=== PATIENT | male | born 1940 | race Caucasian/White ===

== ENCOUNTER → 2017-07-03 | Outpatient (CLI) | payer MEDICARE, OTHER ==
[2017-03-19 12:55] VITALS: BMI 23.0
[~2017-07-03] MED LIST: DOC100 PO; DOCU-416 PO; DOCU100C49 PO; FESO8PT PO; FINA5TAB64 PO; HYDR-385 PO; HYDR-4309 PO; LEVO250T55 PO; MIRA50TA PO; NITR-105 PO; OXYB10TA21 PO; PAN20 PO; PANT40TA65 PO; PER PO; PHEN200T32 PO; SULF-198 PO; TAMS0.4C25 PO
[2017-07-03 12:16] LABS: PLATELET COUNT, AUTOMATED 347 K/uL (150-450)
== END ==
LOC: LAB 11:39
PROVIDERS: ATTEND Internal Medicine Nephrology
DX: Z13.9 Encounter for screening, unspecified (principal); N28.9 Disorder of kidney and ureter, unspecified; N18.3 Chronic kidney disease, stage 3 (moderate); D63.1 Anemia in chronic kidney disease
CPT/HCPCS: 36415; 81001; 82040; 82310; 82374; 82435; 82550; 82565; 82570; 82728; 82947; 83540; 83550; 83970; 84100; 84132; 84156; 84295; 84520; 85025; 87077; 87088; 87186

== ENCOUNTER → 2017-07-08 | Outpatient (CLI) | payer MEDICARE, OTHER ==
[2017-03-19 12:55] VITALS: BMI 23.0
[~2017-07-08] MED LIST changes: -FESO8PT PO; -MIRA50TA PO
--- NOTE | 2017-07-08 15:09 | RADIOLOGY IMAGING REPORT ---
FACILITY: [facility] PATIENT NAME: Warren Tomas : 1940 MR: [id number] V: [id number] EXAM DATE: ORDERING PHYSICIAN: LANETTE GE TECHNOLOGIST: Location: [facility] Patient: Warren Tomas : 1940 Visit/Account:[id number] Date of Sevice: 07/08/2017 KIDNEYS EXAMINATION: Renal ultrasound. History: Acute renal injury, renal insufficiency, prior left nephrectomy COMPARISON STUDIES: May 06, 2017 FINDINGS: Kidneys: Right kidney- 10.7 x 5.8 x 5.8 cm Left kidney- surgically removed cm Uniform and symmetric blood flow in the right kidney by Doppler ultrasound. Hydronephrosis: There is a mild hydronephrosis on the right prebladder emptying although this resolve d following patient voiding. Resistive index on the right is 0.61. Bladder: Prevoid volume 190 mL. Post void residual 3 mL. The right ureteral jet was identified Abdominal aorta and IVC: Aorta and IVC are patent by Doppler ultrasound. IMPRESSION: Post surgical changes from a left nephrectomy There is mild hydronephrosis on the right that resolved following patient voiding. Report Dictated By: Avis Weinberg MD at 07/08/2017 3:02 PM Report E-Signed By: Avis Weinberg MD at 07/08/2017 3:05 PM WSN:[email or web address]
== END ==
LOC: US 02:24
PROVIDERS: ATTEND Internal Medicine Nephrology
DX: N13.30 Unspecified hydronephrosis (principal); Z90.5 Acquired absence of kidney
CPT/HCPCS: 76705

== ENCOUNTER → 2017-07-10 | Outpatient (CLI) | payer MEDICARE, OTHER ==
[2017-03-19 12:55] VITALS: BMI 23.0
== END ==
LOC: LAB 09:13
PROVIDERS: ATTEND Internal Medicine Nephrology
DX: N28.9 Disorder of kidney and ureter, unspecified (principal); N18.9 Chronic kidney disease, unspecified; D63.1 Anemia in chronic kidney disease; N17.9 Acute kidney failure, unspecified
CPT/HCPCS: 36415; 82310; 82374; 82435; 82565; 82947; 84132; 84295; 84520

== ENCOUNTER → 2017-07-16 | Outpatient (CLI) | payer MEDICARE, OTHER ==
[2017-03-19 12:55] VITALS: BMI 23.0
[~2017-07-16] MED LIST changes: +FESO8PT PO; +MIRA50TA PO
== END ==
LOC: LAB 09:25
PROVIDERS: ATTEND Internal Medicine Nephrology
DX: N17.9 Acute kidney failure, unspecified (principal)
CPT/HCPCS: 36415; 82310; 82374; 82435; 82565; 82947; 84132; 84295; 84520

== ENCOUNTER → 2017-07-18 | Outpatient (CLI) | payer MEDICARE, OTHER ==
[2017-03-19 12:55] VITALS: BMI 23.0
== END ==
LOC: LAB 08:19
PROVIDERS: ATTEND Urology
DX: N13.30 Unspecified hydronephrosis (principal); N18.9 Chronic kidney disease, unspecified; R33.8 Other retention of urine
CPT/HCPCS: 81001; 87088

== ENCOUNTER 2017-07-23 00:22 | Day surgery (SDC) | payer MEDICARE, OTHER ==
[2017-03-19 12:55] VITALS: Ht 180.3 cm; Wt 70.3 kg
--- NOTE | 2017-07-22 15:15 | HISTORY AND PHYSICAL ---
DATE OF ADMISSION: July 23, 2017 CHIEF COMPLAINT Chronic renal insufficiency with right solitary kidney with indwelling ureteral stent and incomplete bladder emptying. HISTORY OF PRESENT ILLNESS The patient is a 77-year-old white male who has a solitary right kidney following left nephrectomy for renal cell carcinoma. He was most recently noted to have a kidney stone in his right lower pole. His baseline creatinine was approximately 2 to 2.2 at that time. He subsequently underwent right ureteral stent placement with extracorporeal shock wave lithotripsy on February 02. His ureteral stent was removed on the 03 of March, and on return to the clinic two and a half weeks later, he was found to be in acute urinary retention with residual greater than 600 mL. A Mcintosh catheter was placed in the office; however, at the conclusion of drainage, the catheter became grossly bloody, and he was admitted to the hospital for bladder irrigation. At that time, an ultrasound was performed which showed the patient to have right hydroureteronephrosis down to his bladder. At this time on admission, his creatinine was at 2.9; however, after the Mcintosh catheter placement, his creatinine decreased to 2.2. In mid March, he was taken to the operating room , and a retrograde pyelogram was performed which showed some continued mild hydronephrosis and questionable narrowing of the distal ureter, although this was unclear. A distal ureteroscopy was performed which was unremarkable, and a double-J stent was placed. Since that time, the patient has been started on a clean intermittent catheterization, Myrbetriq, and Toviaz, and hopes to decrease his bladder pressures. However, formal urodynamics have not been performed. The patient recently saw Dr. Gonzalez of Nephrology who recommended that we keep his ureteral stent in place until his GFR returns to his previous baseline. More recently, his creatinine has been 4.[address] Gonzalez ordered a renal ultrasound which was performed on the 08 of July which showed some mild right hydronephrosis which resolved after the patient catheterized. Current urine culture is negative. We plan to perform anesthetic cystoscopy, stent removal, and replacement with possible ureteroscopy. PAST MEDICAL HISTORY 1. Vertigo. 2. Gastroesophageal reflux disease. 3. Erectile dysfunction. 4. BPH with elevated PSA and urinary retention. 5. Kidney stones. 6. Gallstones. 7. Thyroid nodule. 8. Renal insufficiency. PAST SURGICAL HISTORY 1. Vasectomy. 2. Colonoscopy. 3. Hernia repair. 4. Thyroid biopsy. 5. Robotic-assisted left radial nephrectomy 2014. 6. Right extracorporeal shock wave lithotripsy with stent placement February 02, 2017. 7. Retrograde pyelogram with right distal ureteroscopy with double-J replacement March 26, 2017. 8. Ureteroscopy with stent replacement April 23, 2017. CURRENT MEDICATIONS 1. Protonix. 2. Flomax. 3. Proscar. 4. Myrbetriq. 5. Toviaz. ALLERGIES No known drug allergies. SOCIAL HISTORY The patient is and lives in [place]. REVIEW OF SYSTEMS The patient denies chest pain, shortness of breath, extremity edema, abdominal pain, change in weight, fever, chills, or bleeding disorder. PHYSICAL EXAMINATION GENERAL: The patient is well-developed, well-nourished, white male in no acute distress. HEENT: Normocephalic, atraumatic. CHEST: Clear to auscultation bilaterally. CARDIOVASCULAR: Regular rate and rhythm. ABDOMEN: Soft, nontender. No masses are palpated. GENITOURINARY: Deferred to the OR. EXTREMITIES: Without clubbing, cyanosis, or edema. NEUROLOGIC: Nonfocal. IMPRESSION A 77-year-old white male with a solitary kidney with renal insufficiency. He currently has significant postvoid residuals which are requiring clean intermittent catheterization. There is also some question whether he has a distal ureteral narrowing causing his hydronephrosis versus a noncompliant bladder with elevated residuals which could be possibly contributing to his renal insufficiency in his solitary system. PLAN Perform anesthetic cystoscopy with removal and replacement of right internal double-J ureteral stent with possible ureteroscopy and/or ureteral dilation. In followup, I would like to perform a formal urodynamics test to evaluate his detrusor compliance and storage pressures with option of chronic indwelling Mcintosh or increasing his CIC to keep his bladder pressures below 30 to 40 cm of water and then possibly proceed with transurethral resection or vaporization of prostate. ELLIOT
[2017-07-23] VITALS (7 sets, daily range): BP systolic 115–138; BP diastolic 69–94
[~2017-07-23] VITALS: Ht 180.3 cm; Wt 70.3 kg
[2017-07-23] MEDS ORDERED: IOPAMIDOL-200 50 ML VIAL IS ONE (07:12)
[2017-07-23] MEDS ORDERED: LIDOCAINE/SOD BICARB 8.4% SYR ID ONE (08:00)
[2017-07-23] MEDS ORDERED: MIDAZOLAM 2 MG/2 ML VIAL IVP ONE (08:00)
[2017-07-23] MEDS ORDERED: NORMOSOL R SOLN(*) 1000 ML BAG 1,000 ML IV PRN (08:00)
[2017-07-23] MEDS ORDERED: ceFAZolin(*) 1 GM VIAL 1 GM in NS(*) 0.9% 100 ML ADDVANT BAG 100 ML IV ONE (08:00)
--- NOTE | 2017-07-23 08:29 | RADIOLOGY IMAGING REPORT ---
FACILITY: [facility] PATIENT NAME: Warren Tomas : 1940 MR: [id number] V: [id number] EXAM DATE: ORDERING PHYSICIAN: TIARRA GILBERT TECHNOLOGIST: Location: [facility] Patient: Warren Tomas : 1940 Visit/Account:[id number] Date of Sevice: 07/23/2017 XR ABDOMEN 1 VIEW Indication: Stent removal Comparison: None. Findings: There is a right-sided double-J stent appears in good position. There is no evidence of ca lculus projecting over the right renal silhouette. There are postoperative changes with surgical cli ps from prior left nephrectomy. Normal bowel gas pattern is seen. IMPRESSION: 1. Right-sided double-J stent which appears in good position. 2. Postoperative changes left-sided nephrectomy. Report Dictated By: Jose Gonzalez at 07/23/2017 8:24 AM Report E-Signed By: Jose Gonzalez at 07/23/2017 8:26 AM WSN:[email or web address]
[2017-07-23] MEDS ORDERED: KETAMINE HCL 200 MG/20 ML MDV ONE (08:45)
[2017-07-23] MEDS ORDERED: IOTHALAMATE MEGLU 172MG/ML BTL 250 ML IVPB ONE (08:49)
[2017-07-23] MEDS ORDERED: BELLADONNA ALK/OPIUM 60MG SUPP PR ONE (08:50)
[2017-07-23] MEDS ORDERED: NS 0.9% 3000 ML IRRIGATION BAG IR ONE (09:00)
--- NOTE | 2017-07-23 14:30 | RADIOLOGY IMAGING REPORT ---
[place] [facility] [place] NAME: Warren Tomas : 1940 MR: [id number] V: [id number] EXAM DATE: ORDERING PHYSICIAN: TIARRA GILBERT TECHNOLOGIST: Location: [facility] [place] Patient: Warren Tomas : 1940 Visit/Account:[id number] Date of Sevice: 07/23/2017 RETROGRADE PYELOGRAM Indication: HEMATURIA Comparison: None. Findings: Images from a retrograde ureterogram are obtained. Final image demonstrates a right-sided double-J stent. IMPRESSION: Images from a right-sided retrograde ureterogram. Radiation dose: AK 20.23 mGy Report Dictated By: Jose Gonzaelz at 07/23/2017 2:25 PM Report E-Signed By: Jose Gonzalez at 07/23/2017 2:26 PM WSN:[email or web address]
--- NOTE | 2017-07-23 20:11 | OPERATIVE REPORT 1 ---
EVENT DATE: July 23, 2017 SURGEON: Pal Dasilva MD ANESTHESIOLOGIST: Jasen Wilson MD ANESTHESIA: General anesthetic. PREOPERATIVE DIAGNOSIS 1. Solitary right kidney. 2. Indwelling right ureteral stent. 3. Incomplete bladder emptying. 4. Chronic renal insufficiency. POSTOPERATIVE DIAGNOSES 1. Solitary right kidney. 2. Indwelling right ureteral stent. 3. Incomplete bladder emptying. 4. Chronic renal insufficiency. PROCEDURES PERFORMED 1. Cystoscopy. 2. Right stent removal. 3. Static cystogram. 4. Right retrograde pyelogram. 5. Right double-J ureteral stent replacement. ESTIMATED BLOOD LOSS Minimal. INTRAVENOUS FLUIDS Crystalloid. DRAINS 1. A 7-Cymraes x 24 cm Percuflex Plus stent on right. 2. An 18-Cymraes Mcintosh catheter. PATHOLOGY None. COMPLICATIONS None. FINDINGS 1. Trilobar hypertrophy of prostate with significant median lobe extension. 2. Cystogram revealed left vesicoureteral reflux of approximately 350 mL volume , capacity of approximately 400 mL. No right reflux identified. 3. Right retrograde pyelogram with no obvious filling defects along the course of the ureter. Prompt ureteral drainage. CONDITION The patient was taken to the recovery room awake and in stable condition. STATEMENT OF MEDICAL NECESSITY The patient is a 77-year-old white male with a history of a solitary kidney, status post left nephrectomy two years ago for renal cell carcinoma, who in January was noted to be in acute urinary retention with hydronephrosis of his right system. At that time, a stent placed, and he was started on CIC. His creatinine has continued to slowly increase from his baseline of approximately 2.2, now to approximately 4.2. The patient is currently on Flomax and Proscar in addition to being on Myrbetriq and Toviaz while he is catheterizing in an attempt to increase his bladder capacity with decreasing intravesical pressures. The patient currently states he voids approximately one-third of his volume and gets out two-thirds with CIC, which he reports doing approximately four to five times a day. He most recently had a renal ultrasound two weeks ago which did show some mild hydronephrosis with the stent in place. This hydronephrosis was noted at a bladder volume of approximately 200 mL. After the patient catheterized, the hydronephrosis, which was mild, resolved. His current stent has been in place since April. He is now being brought to the operating room for planned anesthetic cystoscopy with stent exchange. DESCRIPTION OF PROCEDURE PERFORMED The patient was brought to the operating room. After general anesthetic was obtained, he was prepped and draped in the usual sterile manner. Antibiotic double solution was instilled into the patient's urethra. This was followed by anesthetic cystoscopy with the 21-Cymraes sheath and both 30- and 70-degree lenses. His bladder neck was mildly elevated with increasing lateral lobes. His median lobe was significantly enlarged. The stent was seen emanating from the right ureteral orifice. There was no evidence of encrustation; however, there was a mild bile film on the stent. The remaining bladder appeared normal. At this point, the distal end of the stent was grasped and gently removed intact. The scope was removed. An 18-Cymraes Mcintosh catheter was placed , and a static cystogram was performed. A total of 400 mL were instilled. He was noted to have left reflux into the ureteral stump at approximately 350 mL. There was no right distal ureteral reflux noted after 400 mL. Approximately 400 mL gravity instillation in the bladder significantly slowed to a drip at a height of approximately 30 cm above the bladder. On my intraoperative interpretation, the cystogram appeared to have left vesicoureteral reflux and a mildly trabeculated bladder wall. No right reflux, and no evidence of bladder extravasation with a total volume approximately 400 mL. Drain films appeared normal. He had prompt drainage of the left ureter. At this point, the Mcintosh catheter was removed and anesthetic cystoscopy again performed. This time, an 8 -Cymraes cone-tip catheter was used to perform a right retrograde pyelogram using 8 mL of contrast material. There were no obvious filling defects or significant areas of obstruction along the course of the ureter. There was slight blunting of the calyceal fornices. However, the pelvis and calyces themselves were not significantly dilated. By my intraoperative interpretation , he had good prompt drainage of the ureter and with moderate drainage of the upper tract. On visualization of the ureteral orifice, contrast material could be seen effluxing at a prompt rate from the right ureteral orifice. The 8- Cymraes access catheter could be advanced up the ureter to the level of the vessels without any resistance. At this point, the cone-tip catheter was removed. A 6-Cymraes access catheter was then used to cannulate the right orifice. A 0.035 wire was placed. The access catheter was removed, and this wire was used to place a 7-Cymraes x 24 cm Percuflex Plus stent. The wire was removed. He was noted to have good coiling in the renal pelvis by fluoroscopy and good coiling in the bladder by direct vision. The scope was removed. An 18 -Cymraes Mcintosh catheter was placed with 12 mL in the balloon. A B and O suppository was given per rectum at the conclusion of the case. He was awakened in the operating room and taken to the recovery area in stable condition. PLAN We will allow the patient to be discharged home today. We are going to continue his Mcintosh catheter in place for the next week. We will see him in the office on the . At that time, we will recheck labs and a creatinine to evaluate his renal function with his system on maximum drainage. If his creatinine has improved, we need to likely formally evaluate his bladder with urodynamics to assess a safe volume and pressure relationship and likely then proceed with transurethral resection and/or vaporization of prostate in an attempt to get him to void spontaneously at lower pressures and then evaluate his system. We may consider removing his ureteral stent and keeping his Mcintosh catheter in place to evaluate for any residual ureteral distal obstruction. ELLIOT
== END 2017-07-23 10:35 | disposition home or self-care (01) ==
LOC: OR 00:22
PROVIDERS: ATTEND Urology
DX: R33.9 Retention of urine, unspecified (principal); N18.9 Chronic kidney disease, unspecified
CPT/HCPCS: 36415; 52005; 74018; 74420; 82565; 84132; 84153; A4338; A9270; C1758; C1769; C2617; J0690; J1100; J2001; J2405; J2704; J3010; J3490; J7050; Q9958; Q9966

== ENCOUNTER → 2017-07-29 | Outpatient (CLI) | payer MEDICARE, OTHER ==
[2017-03-19 12:55] VITALS: BMI 23.0
== END ==
LOC: LAB 07:57
PROVIDERS: ATTEND Urology
DX: N18.9 Chronic kidney disease, unspecified (principal); N13.30 Unspecified hydronephrosis; R33.8 Other retention of urine
CPT/HCPCS: 36415; 82040; 84100

== ENCOUNTER → 2017-07-29 | Outpatient (CLI) | payer MEDICARE, OTHER ==
[2017-03-19 12:55] VITALS: BMI 23.0
[2017-07-29 08:24] LABS: PLATELET COUNT, AUTOMATED 157 K/uL (150-450)
== END ==
LOC: LAB 08:02
PROVIDERS: ATTEND Internal Medicine Nephrology
DX: N28.9 Disorder of kidney and ureter, unspecified (principal); N17.9 Acute kidney failure, unspecified; D30.02 Benign neoplasm of left kidney; D49.519 Neoplasm of unspecified behavior of unspecified kidney
CPT/HCPCS: 82040; 82247; 82310; 82374; 82435; 82565; 82947; 84075; 84132; 84155; 84295; 84450; 84460; 84520; 85025

== ENCOUNTER → 2017-08-14 | Outpatient (CLI) | payer MEDICARE, OTHER ==
[2017-03-19 12:55] VITALS: BMI 23.0
== END ==
LOC: LAB 08:02
PROVIDERS: ATTEND Urology
DX: N18.9 Chronic kidney disease, unspecified (principal)
CPT/HCPCS: 36415; 82040; 82247; 82310; 82374; 82435; 82565; 82947; 84075; 84132; 84155; 84295; 84450; 84460; 84520

== ENCOUNTER → 2017-08-25 | Outpatient (CLI) | payer MEDICARE, OTHER ==
[2017-03-19 12:55] VITALS: BMI 23.0
== END ==
LOC: LAB 08:04
PROVIDERS: ATTEND Urology
DX: N18.9 Chronic kidney disease, unspecified (principal); R33.9 Retention of urine, unspecified; N13.30 Unspecified hydronephrosis; Z85.528 Personal history of other malignant neoplasm of kidney
CPT/HCPCS: 36415; 82040; 82247; 82310; 82374; 82435; 82565; 82947; 84075; 84132; 84155; 84295; 84450; 84460; 84520

== ENCOUNTER → 2017-08-27 | Outpatient (CLI) | payer MEDICARE, OTHER ==
[2017-03-19 12:55] VITALS: BMI 23.0
--- NOTE | 2017-08-27 09:16 | RADIOLOGY IMAGING REPORT ---
[facility] PATIENT NAME: Warren Tomas : 1940 MR: [id number] V: [id number] EXAM DATE: ORDERING PHYSICIAN: TIARRA GILBERT TECHNOLOGIST: Location: [facility] Patient: Warren Tomas : 1940 Visit/Account:[id number] Date of Sevice: 08/27/2017 Renal ultrasound INDICATION: Urinary retention COMPARISON: July 08, 2017 FINDINGS: The right kidney measures 8.8 x 4.9 x 4.8 cm. The left kidney is surgically absent. Renal echogenic ity is normal. No hydronephrosis or renal mass. The right renal cortex appears less thick when comp ared to prior exam. The visible aorta and IVC are normal. A Mcintosh catheter is present within the decompressed bladder. Heterogeneous partially echogenic/calci fied prostate gland is noted and is not well characterized by ultrasound. IMPRESSION: 1. Surgically absent left kidney. 2. No hydronephrosis. 3. The right renal cortex appears less thick when compared to prior. 4. Otherwise unremarkable renal ultrasound. Report Dictated By: Arthur Duke MD at 08/27/2017 8:25 AM Report E-Signed By: Arthur Duke MD at 08/27/2017 9:11 AM WSN:[email or web address]
== END ==
LOC: US 02:43
PROVIDERS: ATTEND Urology
DX: Z90.5 Acquired absence of kidney (principal); R33.8 Other retention of urine; N18.9 Chronic kidney disease, unspecified; Z85.528 Personal history of other malignant neoplasm of kidney
CPT/HCPCS: 36415; 76705; 82565

== ENCOUNTER → 2017-08-31 | Outpatient (CLI) | payer MEDICARE, OTHER ==
[2017-03-19 12:55] VITALS: BMI 23.0
--- NOTE | 2017-08-31 10:03 | RADIOLOGY IMAGING REPORT ---
[place] [facility]: [place] Tomas : 1940 MR: [id number] V: [id number] EXAM DATE: ORDERING PHYSICIAN: TIARRA GILBERT TECHNOLOGIST: [place] [facility] [place] : 1940 Visit/Account:[id number] Date of Sevice: 08/31/2017 Renal ultrasound. HISTORY: Right hydronephrosis, chronic kidney disease, history of kidney cancer. COMPARISON: 08/27/2017. Right renal length: 8.7 cm. Right renal cortical thickness: Borderline thinned, lobulated. Right hydronephrosis: No. Right perinephric fluid collections: No. The left kidney is absent. The urinary bladder is collapsed around a Mcintosh catheter balloon. Right ureteral jet: Not visualized. Left ureteral jet: Not visualized. The ureters are obscured. The abdominal aorta and inferior vena cava are partially obscured. IMPRESSION: Borderline right renal atrophy. No right hydronephrosis. Absent left kidney. Report Dictated By: Honorio Butt MD at 08/31/2017 9:54 AM Report E-Signed By: Honorio Butt MD at 08/31/2017 9:59 AM WSN:[email or web address]
== END ==
LOC: US 04:13
PROVIDERS: ATTEND Urology
DX: Z90.5 Acquired absence of kidney (principal); N18.9 Chronic kidney disease, unspecified; Z85.528 Personal history of other malignant neoplasm of kidney
CPT/HCPCS: 36415; 76705; 82040; 82247; 82310; 82374; 82435; 82565; 82947; 84075; 84132; 84155; 84295; 84450; 84460; 84520

== ENCOUNTER → 2017-09-10 | Outpatient (CLI) | payer MEDICARE, OTHER ==
[2017-03-19 12:55] VITALS: BMI 23.0
--- NOTE | 2017-09-10 09:46 | RADIOLOGY IMAGING REPORT ---
[facility] PATIENT NAME: Warren Tomas : 1940 MR: [id number] V: [id number] EXAM DATE: ORDERING PHYSICIAN: TIARRA GILBERT TECHNOLOGIST: Location: [facility] [place] Patient: Warren Tomas : 1940 Visit/Account:[id number] Date of Sevice: 09/10/2017 KIDNEYS EXAMINATION: Renal ultrasound. History: History of hydronephrosis, right stent removal, solitary right kidney COMPARISON STUDIES: August 31, 2017 FINDINGS: Kidneys: Right kidney- 9.1 x 4.6 x 5.1 cm Left kidney- removed Uniform and symmetric blood flow in the right kidney by Doppler ultrasound. Hydronephrosis: none Resistive index on the right 0.6. Suggestion of mild cortical thinning of the upper pole the right k idney Bladder: The bladder is decompressed with a Mcintosh catheter therefore not well evaluated Incidentally noted is cholelithiasis Abdominal aorta and IVC: Obscured by bowel gas IMPRESSION: Suggestion of mild cortical thinning of the upper pole of the solitary right kidney with no evidence of hydronephrosis Bladder is decompressed with a Mcintosh catheter Incidental note of cholelithiasis Report Dictated By: Avis Weinberg MD at 09/10/2017 9:37 AM Report E-Signed By: Avis Weinberg MD at 09/10/2017 9:41 AM WSN:[email or web address]
== END ==
LOC: US 00:46
PROVIDERS: ATTEND Urology
DX: N18.9 Chronic kidney disease, unspecified (principal); N13.30 Unspecified hydronephrosis; Z85.528 Personal history of other malignant neoplasm of kidney
CPT/HCPCS: 36415; 76705; 82040; 82247; 82310; 82374; 82435; 82565; 82947; 84075; 84132; 84155; 84295; 84450; 84460; 84520

== ENCOUNTER → 2017-09-23 | Outpatient (CLI) | payer MEDICARE, OTHER ==
[2017-03-19 12:55] VITALS: BMI 23.0
== END ==
LOC: LAB 09:11
PROVIDERS: ATTEND Internal Medicine Nephrology
DX: N28.9 Disorder of kidney and ureter, unspecified (principal); N17.9 Acute kidney failure, unspecified; D30.02 Benign neoplasm of left kidney; D49.519 Neoplasm of unspecified behavior of unspecified kidney
CPT/HCPCS: 36415; 82040; 82310; 82374; 82435; 82565; 82947; 84100; 84132; 84295; 84520

== ENCOUNTER → 2017-09-30 | Outpatient (CLI) | payer MEDICARE, OTHER ==
[2017-03-19 12:55] VITALS: BMI 23.0
== END ==
LOC: LAB 08:33
PROVIDERS: ATTEND Urology
DX: R33.9 Retention of urine, unspecified (principal); N13.30 Unspecified hydronephrosis; N18.9 Chronic kidney disease, unspecified; Z90.5 Acquired absence of kidney
CPT/HCPCS: 36415; 82040; 82247; 82310; 82374; 82435; 82565; 82947; 84075; 84132; 84155; 84295; 84450; 84460; 84520

== ENCOUNTER → 2017-11-03 | Outpatient (REF) | payer MEDICARE, OTHER ==
[2017-03-19 12:55] VITALS: BMI 23.0
== END ==
LOC: ZZSENDIN 19:12
PROVIDERS: ATTEND Urology
DX: N39.0 Urinary tract infection, site not specified (principal); B96.89 Other specified bacterial agents as the cause of diseases classified elsewhere
CPT/HCPCS: 87088

== ENCOUNTER → 2017-11-03 | Outpatient (CLI) | payer MEDICARE, OTHER ==
[2017-03-19 12:55] VITALS: BMI 23.0
--- NOTE | 2017-11-03 12:04 | RADIOLOGY IMAGING REPORT ---
[place] [facility] [place] NAME: Warren Tomas : 1940 MR: [id number] V: [id number] EXAM DATE: ORDERING PHYSICIAN: TIARRA GILBERT TECHNOLOGIST: Location: [facility] [place] Patient: Warren Tomas : 1940 Visit/Account:[id number] Date of Sevice: 11/03/2017 KIDNEYS EXAMINATION: Renal ultrasound. History: History of hydronephrosis right kidney, history of left nephrectomy for renal cancer COMPARISON STUDIES: September 10, 2017 FINDINGS: Kidneys: Right kidney- 9.4 x 4.4 x 4.8 cm Left kidney- surgically removed cm Uniform and symmetric blood flow in the right kidney by Doppler ultrasound. Hydronephrosis: none There is a slight lobular contour to the right kidney Bladder: The bladder is decompressed by Mcintosh catheter Abdominal aorta and IVC: Aorta and IVC are patent by Doppler ultrasound. IMPRESSION: Slight lobular contour to the right kidney although no evidence of hydronephrosis Postsurgical changes from a left nephrectomy Report Dictated By: Avis Weinberg MD at 11/03/2017 11:02 AM Report E-Signed By: Avis Weinberg MD at 11/03/2017 12:00 PM WSN:[email or web address]
== END ==
LOC: US 02:03
PROVIDERS: ATTEND Urology
DX: Z90.5 Acquired absence of kidney (principal); N18.9 Chronic kidney disease, unspecified; R33.8 Other retention of urine
CPT/HCPCS: 36415; 76705; 82565

== ENCOUNTER → 2017-12-04 | Outpatient (CLI) | payer MEDICARE, OTHER ==
[2017-03-19 12:55] VITALS: BMI 23.0
== END ==
LOC: LAB 08:04
PROVIDERS: ATTEND Urology
DX: N18.9 Chronic kidney disease, unspecified (principal); R33.8 Other retention of urine
CPT/HCPCS: 36415; 82040; 82247; 82310; 82374; 82435; 82565; 82947; 84075; 84132; 84155; 84295; 84450; 84460; 84520

== ENCOUNTER → 2017-12-23 | Outpatient (CLI) | payer MEDICARE, OTHER ==
[2017-03-19 12:55] VITALS: BMI 23.0
[2017-12-23 10:12] LABS: PLATELET COUNT, AUTOMATED 166 K/uL (150-450)
== END ==
LOC: LAB 09:42
PROVIDERS: ATTEND Internal Medicine Nephrology
DX: N17.9 Acute kidney failure, unspecified (principal); N13.9 Obstructive and reflux uropathy, unspecified; N18.4 Chronic kidney disease, stage 4 (severe); D63.1 Anemia in chronic kidney disease; Z90.5 Acquired absence of kidney
CPT/HCPCS: 36415; 81001; 82040; 82310; 82374; 82435; 82565; 82570; 82947; 84100; 84132; 84156; 84295; 84520; 85025

== ENCOUNTER → 2018-01-18 | Outpatient (CLI) | payer MEDICARE, OTHER ==
[2017-03-19 12:55] VITALS: BMI 23.0
[~2018-01-18] MED LIST changes: +FERR325T24 PO
[2018-01-18 16:14] LABS: PLATELET COUNT, AUTOMATED 174 K/uL (150-450)
== END ==
LOC: LAB 15:53
PROVIDERS: ATTEND Urology
DX: Z01.812 Encounter for preprocedural laboratory examination (principal); Z12.5 Encounter for screening for malignant neoplasm of prostate; N18.9 Chronic kidney disease, unspecified; R33.8 Other retention of urine; C68.8 Malignant neoplasm of overlapping sites of urinary organs
CPT/HCPCS: 36415; 81001; 85025; 87088; G0103; 82040; 82247; 82310; 82374; 82435; 82565; 82947; 84075; 84132; 84153; 84155; 84295; 84450; 84460; 84520

== ENCOUNTER 2018-01-21 00:03 | Day surgery (SDC) | payer MEDICARE, OTHER ==
[2017-03-19 12:55] VITALS: Ht 177.8 cm; Wt 73.0 kg
--- NOTE | 2018-01-20 17:07 | HISTORY AND PHYSICAL ---
DATE OF ADMISSION: January 21, 2018 CHIEF COMPLAINT Small-capacity, high-pressure bladder for suprapubic tube placement. HISTORY OF PRESENT ILLNESS Mr. Tomas is a 77-year-old white male who is status post left nephrectomy for a localized renal cell carcinoma, who is being currently followed in the Urology Clinic for incomplete bladder emptying associated with a high-pressure, small- volume bladder with chronic renal insufficiency with a gradient of appropriate 3.5. He is followed by Dr. Gonzalez of the Nephrology Clinic for his underlying chronic renal disease. The patient has had a Mcintosh catheter in place for several months in an attempt to maximize his upper tract drainage and preserve his renal function. He recently has seen Dr. Rebel Waters at the [facility] in [place] concerning his condition with the small -capacity, high-pressure bladder. His options were given as a continued Mcintosh catheter versus a suprapubic catheter versus augmentation cystoplasty. The patient currently is caring for his with dementia and is unable to proceed directly with augmentation. Therefore, we will plan to bridge him with a suprapubic tube placement. If he does well with this with no hematuria with lifting or physical activity, and his renal function remains stable, then this may be his definitive treatment of choice. PAST MEDICAL HISTORY 1. Vertigo. 2. Gastroesophageal reflux disease. 3. Erectile dysfunction. 4. BPH with elevated PSA. 5. Urinary retention. 6. Kidney stones. 7. Gallstones. 8. Thyroid nodule. 9. Renal insufficiency. PAST SURGICAL HISTORY 1. Vasectomy. 2. Colonoscopy. 3. Hernia repair. 4. Thyroid biopsy. 5. Robotic-assisted left radical nephrectomy 2014. 6. Right extracorporeal shock wave lithotripsy with stent placement March 2017. 7. Retrograde pyelogram with right distal ureteroscopy and double-J stent replacement March 2017. 8. Ureteroscopy with stent placement April 2017. 9. Stent removal with cystogram and right retrograde pyelogram and double-J stent replacement July 2017. CURRENT MEDICATIONS 1. Toviaz. 2. Myrbetriq. 3. Protonix. 4. Flomax. ALLERGIES No known drug allergies. SOCIAL HISTORY Patient is and lives outside of [place], [place], [place]. FAMILY HISTORY Noncontributory. REVIEW OF SYSTEMS Patient denies chest pain, shortness of breath, nausea, vomiting, fever, chills , bleeding disorder, or change in bowel habits. PHYSICAL EXAMINATION GENERAL: Patient is a well-developed, well-nourished, white male in no acute distress. HEENT: Normocephalic, atraumatic. CHEST: Clear to auscultation bilaterally. CARDIOVASCULAR: Regular rate and rhythm. ABDOMEN: Soft, nontender. No masses are palpated. GENITOURINARY: Deferred to the OR. EXTREMITIES: Without clubbing, cyanosis, or edema. NEUROLOGIC: Nonfocal. LABORATORY DATA He has had a recent PSA of 3.6 which is down from his pre-Proscar treatment value of approximately 7.3 to 9.4. IMPRESSION A 77-year-old white male with a high-pressure, small-volume bladder with obstructive uropathy and chronic renal insufficiency. PLAN Will perform anesthetic cystoscopy with suprapubic tube placement. [facility]
[~2018-01-21] VITALS: Ht 177.8 cm; Wt 73.0 kg
[2018-01-21] MEDS ORDERED: LIDOCAINE/SOD BICARB 8.4% SYR ID ONE (09:55)
[2018-01-21] MEDS ORDERED: NORMOSOL R SOLN(*) 1000 ML BAG 1,000 ML IV PRN (09:55)
[2018-01-21] MEDS ORDERED: ceFAZolin(*) 1 GM VIAL 1 GM, GENTAMICIN(*) 80 MG/2 ML VIAL 60 MG in NS 0.9% IRRIGATION ... IR ONE (09:55)
[2018-01-21] MEDS ORDERED: MIDAZOLAM 2 MG/2 ML VIAL IVP PRN (09:55)
[2018-01-21] MEDS ORDERED: ceFAZolin(*) 1 GM VIAL 1 GM in NS(*) 0.9% 100 ML ADDVANT BAG 100 ML IVPB ONE (09:55)
[2018-01-21] MEDS ORDERED: fentaNYL CITR 100 MCG/2 ML AMP ONE (10:26)
[2018-01-21] MEDS ORDERED: ONDANSETRON 4 MG/2 ML VIAL ONE (10:27)
[2018-01-21] MEDS ORDERED: PROPOFOL EMUL(*) 10MG/ML 20 ML 20 ML ONE (10:27)
[2018-01-21] MEDS ORDERED: DEXAMETHASONE SOD 4 MG/ML VIAL ONE (10:27)
[2018-01-21] MEDS ORDERED: LIDOCAINE MPF 1% 5 ML VIAL ONE (10:27)
[2018-01-21 11:12] VITALS: BP 145/87
--- NOTE | 2018-01-21 11:14 | EKG ---
FACILITY: PATIENT NAME: JORDAN TAVAREZ : [id number] MR: [id number] V: [id number] EXAM DATE: ORDERING PHYSICIAN: TRINA PATTEN TECHNOLOGIST: NORRIS Test Reason : PRE OP Blood Pressure : / mmHG Vent. Rate : 074 BPM Atrial Rate : 074 BPM P-R Int : 174 ms QRS Dur : 088 ms QT Int : 364 ms P-R-T Axes : 074 072 076 degrees QTc Int : 404 ms Sinus rhythm No acute appearing findings No previous ECGs available Confirmed by TEODORO WILLIAM ([id number]) on 01/21/2018 12:24:16 PM Referred By: VLADIMIR Confirmed By:TEODORO WILLIAM
[2018-01-21] MEDS ORDERED: BELLADONNA ALK/OPIUM 60MG SUPP PR ONE (11:43)
[2018-01-21] MEDS ORDERED: LEVOFLOXACIN/D5W 250 MG/50 ML 50 ML IVPB ONE (11:55)
[2018-01-21] MEDS ORDERED: NEOMYCIN/POLYMYX/BACITR 30 GM TP ONE (12:04)
[2018-01-21] MEDS ORDERED: DOCU-416 PO (12:42)
[2018-01-21] MEDS ORDERED: HYDR-4309 PO (12:43)
[2018-01-21 13:15] VITALS: BP 126/82
[2018-01-21] MEDS ORDERED: APAP/HYDROCODONE 325/5 TAB ONE (13:40)
--- NOTE | 2018-01-21 14:38 | OPERATIVE REPORT 1 ---
EVENT DATE: January 21, 2018 SURGEON: Pal Dasilva MD ANESTHESIOLOGIST: Jhonny Dye MD ANESTHESIA: General anesthetic. PREOPERATIVE DIAGNOSES 1. Small-capacity, high-pressure neurogenic bladder with outlet obstruction. 2. Chronic renal insufficiency. POSTOPERATIVE DIAGNOSES 1. Small-capacity, high-pressure neurogenic bladder with outlet obstruction. 2. Chronic renal insufficiency. PROCEDURES PERFORMED 1. Anesthetic cystoscopy with bladder irrigation using double antibiotic solution. 2. Suprapubic tube placement. ESTIMATED BLOOD LOSS 5 mL INTRAVENOUS FLUIDS Crystalloid. DRAINS 20-[place] Citizen, 30 mL balloon Mcintosh catheter as SP tube. COMPLICATIONS None. CONDITIONS Patient taken to recovery room awake and in stable condition. STATEMENT OF MEDICAL NECESSITY Patient is a 77-year-old male who is status post left radical nephrectomy for renal cell carcinoma who is more recently noted to have both urinary retention and a high-pressure, small-capacity bladder requiring chronic Mcintosh catheter placement. He has consulted with Dr. Rebel Waters at the [facility] in [place] concerning possible bladder augmentation in the future. He is currently unable to take a sufficient amount of time off to recover from this procedure and currently desires suprapubic tube placement while considering his options. DESCRIPTION OF OPERATION PERFORMED Patient was brought to the operating room. His Mcintosh catheter was removed, and he was placed in the dorsal lithotomy position and prepped and draped in the usual sterile manner. At first, his urethra was irrigated with antibiotic solution with a bulb syringe. This was followed by anesthetic cystoscopy with the 21-[place] Citizen rigid scope and 30-degree lens. He had a normal-appearing pendulous, bulbar, and membranous urethra. In his prostatic urethra, he was noted to have significant median lobe extinction. Upon entering his bladder, there appeared to be some bullous changes on the posterior wall and dome consistent with Mcintosh catheter irritation. No other abnormalities were noted. At this point, bladder irrigation with double antibiotic solution was done through the scope sheath. The patient was then placed in the Trendelenburg position and his bladder filled to capacity with gravity drainage at approximately 300 mL. Following this, the cystoscope was removed, and the Lowsley retractor was placed in the urethra and guided into the bladder. It was then tented up on the anterior dome surface of the bladder. A small incision was made in the midline approximately two fingerbreadths above the pubic symphysis and taken down to the Lowsley retractor which punched through this opening and was advanced out. At this point, the forceps of the Lowsley were opened, and this was used to grasp the 24-inch Mcintosh catheter with a 30 mL balloon. This was then advanced back into the bladder where the balloon was inflated with 10 mL. It was released from the Lowsley and the Lowsley removed. Cystoscopy was repeated. The catheter appeared to be in a good location on the dome of the bladder, and 20 mL were inflated on the catheter, and the balloon was pulled up on the dome of the bladder. The SP site was irrigated with antibiotic solution. A 4-0 chromic was used to reapproximate the skin edge on the lateral aspect of the incision, and a #1 chromic stitch was then used to secure the SP tube to the skin. A sterile dressing was applied. The catheter was placed to a Mcintosh drainage bag. He was given a B and O suppository and taken down from dorsal lithotomy position. He was then awakened in the operating room and taken to the recovery area in stable condition. PLAN The plan will be allow the patient to be discharged home today with his Mcintosh catheter to gravity drainage. He is to be given both urinary leg and bed bags and instructions to use. He is to continue his Bactrim single strength twice a day for the next three days. He is also give a prescription for Willard and Colace as needed. Will plan to see Mr. Tomas in the clinic in three to four weeks for his first suprapubic catheter exchange. ELLIOT
== END 2018-01-21 13:15 | disposition home or self-care (01) ==
LOC: OR 00:03
PROVIDERS: ATTEND Urology
DX: N31.9 Neuromuscular dysfunction of bladder, unspecified (principal); N18.9 Chronic kidney disease, unspecified; K21.9 Gastro-esophageal reflux disease without esophagitis; N40.0 Benign prostatic hyperplasia without lower urinary tract symptoms
CPT/HCPCS: 51040; 51700; 93005; A9270; J0690; J1100; J1956; J2001; J2405; J2704; J3010; J7050

== ENCOUNTER → 2018-02-01 | Outpatient (CLI) | payer MEDICARE, OTHER ==
[2017-03-19 12:55] VITALS: BMI 23.0
== END ==
LOC: LAB 09:21
PROVIDERS: ATTEND Urology
DX: N39.0 Urinary tract infection, site not specified (principal)
CPT/HCPCS: 81001; 87088

== ENCOUNTER → 2018-02-05 | Outpatient (CLI) | payer MEDICARE, OTHER ==
[2017-03-19 12:55] VITALS: BMI 23.0
--- NOTE | 2018-02-05 16:20 | RADIOLOGY IMAGING REPORT ---
FACILITY: [facility] PATIENT NAME: Warren Tomas : 1940 MR: [id number] V: [id number] EXAM DATE: ORDERING PHYSICIAN: TRINA HANKS TECHNOLOGIST: Location: Patient: Warren Tomas : 1940 Visit/Account:[id number] Date of Sevice: 02/05/2018 THYROID HISTORY: See Dx COMPARISON: 03/24/2017 FINDINGS: SIZE: Normal. Right lobe: 4.8 x 2.3 x 1.6 cm Left lobe: 4.1 x 1.7 x 1.8 cm Isthmus: 4 mm PARENCHYMA: Homogeneous. NODULES: Right lobe: * Reidentified and slightly increased in size is an isoechoic nodule within the inferior lobe measur ing 1.4 x 1.2 x 1.4 cm, previously the nodule measured 1.1 cm Left lobe: * Reidentified and slightly smaller in appearance is a hypoechoic nodule within the mid body measuri ng 0.9 x 0.7 x 0.8 cm. Previously this measured 1 cm. Isthmus: * None discrete. VASCULARITY: Within normal limits. ADDITIONAL FINDINGS: None. IMPRESSION: Slight interval increase in size of low suspicion isoechoic nodule within the right thyroid lobe. Ольга kong does not meet criteria for FNA at this time. Interval decrease in size of solid hypoechoic nodule within the left thyroid lobe REFERENCE: 2015 [place] [employer] Management Guidelines for Adult Patients with Thyroid Nodules and D ifferentiated Thyroid Cancer: The [place] Thyroid [employer] Guidelines Task Force on Thyroid Nodul es and Differentiated Thyroid Cancer. SONOGRAPHIC PATTERNS: * Benign: Purely cystic nodules (no solid component); estimated risk of malignancy <1 percent; no bi opsy recommended. * Very Low Suspicion: Spongiform or partially cystic nodules without any of the sonographic features described in low, intermediate, or high suspicion patterns; estimated risk of malignancy <3 percent; consider FNA at > 2 cm (Observation without FNA is also a reasonable option). * Low Suspicion: Isoechoic or hyperechoic solid nodule, or partially cystic nodule with eccentric so lid areas, without microcalcification, irregular margin or ETE (extra-thyroidal extension), or taller than wide shape; estimated risk of malignancy 5-10 percent; recommend FNA at >1.5 cm. * Intermediate Suspicion: Hypoechoic solid nodule with smooth margins without microcalcifications, E TE (extra-thyroidal extension), or taller than wide shape; estimated risk of malignancy 10-20 percent ; recommend FNA at > 1 cm. * High Suspicion: Solid hypoechoic nodule or solid hypoechoic component of a partially cystic nodule with one or more of the following features: irregular margins (infiltrative, microlobulated), microc alcifications, taller than wide shape, rim calcifications with small extrusive soft tissue component, evidence of ETE (extra-thyroidal extension); estimated risk of malignancy >70-90 percent; recommend FNA at > 1 cm. NOTES: * Although a sonographically suspicious subcentimeter thyroid nodule without evidence of extrathyroi harinder extension or sonographically suspicious lymph nodes may be observed with close sonographic follow -up rather than pursuing immediate FNA, patient age and preference may modify decision-making. * A > 50% interval increase in nodule volume and/or development of new suspicious sonographic featur es are felt to be a valid reasons for potential re-aspiration of a nodule previously shown to have be nign FNA cytology. Report Dictated By: Chaz Mayo at 02/05/2018 4:12 PM Report E-Signed By: Cahz Mayo at 02/05/2018 4:15 PM WSN:[email or web address]
== END ==
LOC: US 04:12
PROVIDERS: ATTEND Surgery
DX: E04.2 Nontoxic multinodular goiter (principal)
CPT/HCPCS: 76536

== ENCOUNTER → 2018-03-17 | Outpatient (CLI) | payer MEDICARE, OTHER ==
[2017-03-19 12:55] VITALS: BMI 23.0
[2018-03-17 08:27] LABS: PLATELET COUNT, AUTOMATED 198 K/uL (150-450)
== END ==
LOC: LAB 08:02
PROVIDERS: ATTEND Internal Medicine Nephrology
DX: N17.9 Acute kidney failure, unspecified (principal); N18.4 Chronic kidney disease, stage 4 (severe); N13.9 Obstructive and reflux uropathy, unspecified; Z90.5 Acquired absence of kidney; D63.1 Anemia in chronic kidney disease
CPT/HCPCS: 36415; 82040; 82310; 82374; 82435; 82565; 82570; 82728; 82947; 83540; 83550; 83970; 84100; 84132; 84156; 84295; 84520; 85025

== ENCOUNTER 2018-04-08 09:27 | Outpatient (RCR) | payer MEDICARE, OTHER ==
[2017-03-19 12:55] VITALS: BMI 23.0
[~2018-04-08 09:27] MED LIST changes: -HYDR-4309 PO; +HYDR-653 PO; +NEOMYCIN/POLYMYX/BACITR OINT 1 PACKET TP ONE
[2018-04-08] MEDS ORDERED: NEOMYCIN/POLYMYX/BACITR 30 GM TP PRN (09:45)
== END 2018-05-05 11:23 | disposition home or self-care (01) ==
LOC: SPU 09:27
PROVIDERS: ATTEND Urology
DX: N18.9 Chronic kidney disease, unspecified (principal); N28.89 Other specified disorders of kidney and ureter; Z90.5 Acquired absence of kidney
CPT/HCPCS: 51702; A9270

== ENCOUNTER 2018-05-10 06:57 | Outpatient (RCR) | payer MEDICARE, OTHER ==
[2017-03-19 12:55] VITALS: BMI 23.0
[~2018-05-10 06:57] MED LIST changes: -NEOMYCIN/POLYMYX/BACITR OINT 1 PACKET TP ONE
[2018-05-10] MEDS ORDERED: NEOMYCIN/POLYMYX/BACITR OINT 1 PACKET TP PRN (09:30)
== END 2018-05-10 16:51 | disposition home or self-care (01) ==
LOC: SPU 06:57
PROVIDERS: ATTEND Urology
DX: N18.9 Chronic kidney disease, unspecified (principal); N28.89 Other specified disorders of kidney and ureter; Z90.5 Acquired absence of kidney

== ENCOUNTER → 2018-05-17 | Outpatient (CLI) | payer MEDICARE, OTHER ==
[2017-03-19 12:55] VITALS: BMI 23.0
[2018-05-17 11:01] LABS: PLATELET COUNT, AUTOMATED 203 K/uL (150-450)
== END ==
LOC: LAB 10:31
PROVIDERS: ATTEND Urology
DX: N18.9 Chronic kidney disease, unspecified (principal); N31.9 Neuromuscular dysfunction of bladder, unspecified; Z48.816 Encounter for surgical aftercare following surgery on the genitourinary system
CPT/HCPCS: 36415; 82040; 82247; 82310; 82374; 82435; 82565; 82947; 84075; 84132; 84155; 84295; 84450; 84460; 84520; 85025

== ENCOUNTER 2018-05-27 13:11 | Outpatient (RCR) | payer MEDICARE, OTHER ==
[2017-03-19 12:55] VITALS: BMI 23.0
[2018-05-27] MEDS ORDERED: NEOMYCIN/POLYMYX/BACITR 30 GM TP PRN (13:30)
== END 2018-05-27 17:00 | disposition home or self-care (01) ==
LOC: SPU 13:11
PROVIDERS: ATTEND Urology
DX: N18.9 Chronic kidney disease, unspecified (principal); N28.89 Other specified disorders of kidney and ureter; Z90.5 Acquired absence of kidney
CPT/HCPCS: 51702; A9270

== ENCOUNTER 2018-07-07 16:46 | Outpatient (RCR) | payer MEDICARE, OTHER ==
[2017-03-19 12:55] VITALS: BMI 23.0
[2018-07-08] MEDS ORDERED: NEOMYCIN/POLYMYX/BACITR 30 GM TP ONE (09:00)
== END 2018-07-08 11:21 | disposition home or self-care (01) ==
LOC: SPU 16:46
PROVIDERS: ATTEND Urology
DX: N18.9 Chronic kidney disease, unspecified (principal); N28.89 Other specified disorders of kidney and ureter; Z90.5 Acquired absence of kidney

== ENCOUNTER → 2018-09-02 | Outpatient (CLI) | payer MEDICARE, OTHER ==
[2017-03-19 12:55] VITALS: BMI 23.0
--- NOTE | 2018-09-02 09:47 | RADIOLOGY IMAGING REPORT ---
FACILITY: [facility] [place] PATIENT NAME: Warren Tomas : 1940 MR: [id number] V: [id number] EXAM DATE: ORDERING PHYSICIAN: TRINA HANKS TECHNOLOGIST: [place] [facility] [place] Warren Tomas : 1940 Visit/Account:[id number] Date of Sevice: 09/02/2018 THYROID HISTORY: Thyroid nodules. COMPARISON: 02/05/2018. FINDINGS: SIZE: Normal. Right lobe: 5.5 x 2.5 x 1.7 cm Left lobe: 2.2 x 1.8 x 4.1 cm Isthmus: 4 mm Thyroid heterogeneity: Homogeneous. NODULES: Right lobe: * 10 x 10 x 8 mm heterogeneously hypoechoic and isoechoic nodule in the inferior right thyroid, prev iously measuring 14 x 14 x 12 mm. Differences in size may be secondary to differences in technique. This nodule is not significantly changed dating back to 02/29/2016. Left lobe: * 11 x 9 x 8 mm heterogeneously hypoechoic and hyperechoic nodule in the mid left thyroid lobe, prev iously measuring 9 x 7 x 8 mm. This nodule is not significantly changed in size dating back to 02/28. The hyperechoic portion is not definitely seen on the most recent ultrasound but was likely p resent on the ultrasound from 03/24/2017. Isthmus: * None discrete. VASCULARITY: Within normal limits. ADDITIONAL FINDINGS: None. IMPRESSION: Stable small bilateral thyroid nodules. Nodule size is not significantly changed dating back to 02/28. REFERENCE: 2015 [place] Thyroid [employer] Management Guidelines for Adult Patients with Thyroid Nodules and D ifferentiated Thyroid Cancer: The [place] Thyroid [employer] Guidelines Task Force on Thyroid Nodul es and Differentiated Thyroid Cancer. SONOGRAPHIC PATTERNS: * Benign: Purely cystic nodules (no solid component); estimated risk of malignancy <1 percent; no bi opsy recommended. * Very Low Suspicion: Spongiform or partially cystic nodules without any of the sonographic features described in low, intermediate, or high suspicion patterns; estimated risk of malignancy <3 percent; consider FNA at > 2 cm (Observation without FNA is also a reasonable option). * Low Suspicion: Isoechoic or hyperechoic solid nodule, or partially cystic nodule with eccentric so lid areas, without microcalcification, irregular margin or ETE (extra-thyroidal extension), or taller than wide shape; estimated risk of malignancy 5-10 percent; recommend FNA at >1.5 cm. * Intermediate Suspicion: Hypoechoic solid nodule with smooth margins without microcalcifications, E TE (extra-thyroidal extension), or taller than wide shape; estimated risk of malignancy 10-20 percent ; recommend FNA at > 1 cm. * High Suspicion: Solid hypoechoic nodule or solid hypoechoic component of a partially cystic nodule with one or more of the following features: irregular margins (infiltrative, microlobulated), microc alcifications, taller than wide shape, rim calcifications with small extrusive soft tissue component, evidence of ETE (extra-thyroidal extension); estimated risk of malignancy >70-90 percent; recommend FNA at > 1 cm. NOTES: * Although a sonographically suspicious subcentimeter thyroid nodule without evidence of extrathyroi harinder extension or sonographically suspicious lymph nodes may be observed with close sonographic follow -up rather than pursuing immediate FNA, patient age and preference may modify decision-making. * A > 50% interval increase in nodule volume and/or development of new suspicious sonographic featur es are felt to be a valid reasons for potential re-aspiration of a nodule previously shown to have be nign FNA cytology. Report Dictated By: Esvin Hill MD at 09/02/2018 9:39 AM Report E-Signed By: Esvin Hill MD at 09/02/2018 9:44 AM WSN:[email or web address]
== END ==
LOC: US 00:43
PROVIDERS: ATTEND Surgery
DX: E04.2 Nontoxic multinodular goiter (principal)
CPT/HCPCS: 76536

== ENCOUNTER → 2018-11-15 | Outpatient (RCR) | payer MEDICARE, OTHER ==
[2017-03-19 12:55] VITALS: BMI 23.0
[2018-09-16] MEDS: NEOMYCIN/POLYMYX/BACITR 30 GM TP PRN (11:00)
[2018-10-14] MEDS: NEOMYCIN/POLYMYX/BACITR 30 GM TP PRN (09:27)
== END ==
LOC: SPU 08-17 13:02
PROVIDERS: ATTEND Urology
DX: N18.9 Chronic kidney disease, unspecified (principal); N28.89 Other specified disorders of kidney and ureter; Z90.5 Acquired absence of kidney
CPT/HCPCS: 51702; A9270

== ENCOUNTER → 2019-01-14 | Outpatient (CLI) | payer MEDICARE, OTHER ==
[2017-03-19 12:55] VITALS: BMI 23.0
[2019-01-14 10:56] LABS: PLATELET COUNT, AUTOMATED 173 K/uL (150-450)
== END ==
LOC: LAB 10:11
PROVIDERS: ATTEND Internal Medicine Nephrology
DX: N18.4 Chronic kidney disease, stage 4 (severe) (principal); D63.1 Anemia in chronic kidney disease
CPT/HCPCS: 36415; 82040; 82310; 82374; 82435; 82565; 82570; 82947; 84100; 84132; 84156; 84295; 84520; 85025

== ENCOUNTER → 2019-01-24 | Outpatient (CLI) | payer MEDICARE, OTHER ==
[2017-03-19 12:55] VITALS: BMI 23.0
== END ==
LOC: LAB 08:35
PROVIDERS: ATTEND Urology
DX: R97.20 Elevated prostate specific antigen [PSA] (principal)
CPT/HCPCS: 36415; 84153